=== PATIENT | male | born 1995 | race Caucasian/White ===

== ENCOUNTER 2018-08-27 20:21 | Emergency (ER) | payer OTHER ==
[~2018-08-27] VITALS: Ht 182.9 cm; Wt 90.7 kg
[2018-08-27 20:25] VITALS: BP_SYST 122
--- NOTE | 2018-08-27 20:29 | NUR ---
Placed in room 05 . Placed on color television console monitor, blood pressure machine and pulse oximeter. To gown for exam. Side rails up.
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
--- NOTE | 2018-08-27 20:45 | NUR ---
ER Dr. Knight at bedside examining patient.
--- NOTE | 2018-08-27 21:20 | NUR ---
Patient resting comfortably in bed.
[2018-08-27 22:02] VITALS: BP_SYST 118
--- NOTE | 2018-08-27 22:02 | NUR ---
Patient given written and verbal discharge instructions and verbalizes understanding. ER MD discussed with patient the results and treatment provided. Patient in stable condition. ID arm band removed. Rx of MOTRIN given. Patient educated on pain management and to follow up with PMD IN 2-3 days. Pain Scale 0/10 Opportunity for questions provided and answered. Medication side effect fact sheet provided.
== END 2018-08-27 22:02 | disposition home or self-care (01) ==
LOC: SED 20:21
DX: S50.02XA Contusion of left elbow, initial encounter (principal); S00.83XA Contusion of other part of head, initial encounter; M79.644 Pain in right finger(s); Y04.0XXA Assault by unarmed brawl or fight, initial encounter; Y93.89 Activity, other specified; Y92.89 Other specified places as the place of occurrence of the external cause; Y99.8 Other external cause status
CPT/HCPCS: 70110-TC; 99284